=== PATIENT | female | born 1980 | race Hispanic/Latino ===

== ENCOUNTER 2018-03-02 22:07 | Emergency (ER) | payer SELFPAY ==
[~2018-03-02] VITALS: Ht 154.9 cm; Wt 72.6 kg
--- NOTE | 2018-03-03 01:16 | Diagnostic Imaging Report ---
EXAM: CHEST 2 VIEWS, PA and lateral INDICATION: Cough, congestion, sore throat COMPARISON: None FINDINGS: LINES/TUBES: None LUNGS: No consolidations or edema. PLEURA: No effusions or pneumothorax. HEART AND MEDIASTINUM: Normal size and contour. BONES AND SOFT TISSUES: No acute findings. IMPRESSION: No consolidative pneumonia. Signed by: Dr. Jennifer Horn M.D. on 03/03/2018 1:12 AM
[2018-03-03 01:54] VITALS: BP 138/79
== END 2018-03-03 01:57 | disposition home or self-care (01) ==
LOC: ER 22:27
DX: R05 Cough (principal); J20.9 Acute bronchitis, unspecified; I10 Essential (primary) hypertension; E11.9 Type 2 diabetes mellitus without complications
CPT/HCPCS: 71046; 83518; 87070; 99283